=== PATIENT | female | born 1995 | race Caucasian/White ===

== ENCOUNTER 2017-04-21 18:32 | Outpatient (CLI) | payer OTHER, MEDICAID ==
[~2017-04-21] VITALS: Ht 165.1 cm; Wt 76.3 kg
[~2017-04-21 18:32] MED LIST: PRENATABS FA1 TAB PO
[2017-04-21 18:56] VITALS: BP 123/67
[2017-04-21 19:22] LABS: URINE BILIRUBIN - DIPSTICK NEGATIVE (NEG); URINE BLOOD NEGATIVE (NEG)
== END 2017-04-21 20:07 | disposition home or self-care (01) ==
LOC: OBOUT 18:32 → OB 18:33 → OBOUT 20:07
PROVIDERS: Obstetrics & Gynecology
DX: O60.03 Preterm labor without delivery, third trimester (principal); Z3A.38 38 weeks gestation of pregnancy